=== PATIENT | female | born 1990 ===

== ENCOUNTER 2018-02-16 06:17 | Inpatient (IN) ==
[2018-02-16] MEDS ORDERED: MEPERIDINE 50 MG/1 ML VIAL IV PRN (06:33)
[2018-02-16] MEDS ORDERED: BUTORPHANOL 2 MG/ML VIAL IV PRN (06:33)
[2018-02-16] MEDS ORDERED: ONDANSETRON 4 MG/2 ML VIAL IV PRN (06:33)
[2018-02-16] MEDS ORDERED: OXYTOCIN/LR 20 UNIT/1,000 ML BAG IV SCH (07:00)
[2018-02-16 07:09] LABS: Basophils % 0.1 % (0.0-0.8); Eosinophils # 0.1 10*3/uL (0.0-0.87); Eosinophils % 1.1 % (0.00-10.9); Hematocrit 32.7 VOL% (35.7-47.0); Hemoglobin 11.2 GM/DL (12.0-16.0); Immature Granulocytes % 1.2 %; Immature Granulocytes Absolute 0.11 #; Lymphocytes # 1.8 10*3/uL (1.4-4.0); Lymphocytes % 19.3 % (21.3-54.2); Mean Corpuscular HGB Conc 34.3 GM/DL (32-36); Mean Corpuscular Hemoglobin 28 PG (27-34); Mean Corpuscular Volume 80.9 FL (87-102); Mean Platelet Volume 10.3 FL (9.6-12.0); Monocytes # 0.7 10*3/uL (0.11-0.8); Monocytes % 7.4 % (1.7-12.7); Neutrophils # 6.7 10*3/uL (1.4-7.4); Neutrophils % 70.9 % (38.7-73.9); Platelet Count 273 T/CUMM (130-400); Red Blood Count 4.04 MC/CUMM (3.8-5.5); Red Cell Distribution Width 14.9 % (9.3-17.3); White Blood Count 9.5 T/CUMM (4-12)
[2018-02-16] MEDS: LACTATED RINGERS 1,000 ML IV SCH ×2 (07:16→12:14)
[2018-02-16 07:31] LABS: Alanine Aminotransferase 12 U/L (13-56); Albumin 2.6 G/DL (3.4-5.0); Alkaline Phosphatase 167 U/L (45-117); Aspartate Amino Transferase 9 U/L (0-37); Bilirubin,Total < 0.39 MG/DL (0.2-1.0); Blood Urea Nitrogen 10 MG/DL (7-18); Calcium 8.6 MG/DL (8.5-10.1); Glucose 105 MG/DL (74-106); Osmolality,Calculated 277.4 MOS/KG (273-304); Potassium 3.7 MMOL/L (3.5-5.1); Sodium 140 MMOL/L (136-145); Total Protein 6.8 G/DL (6.4-8.3)
[2018-02-16] MEDS ORDERED: DINOPROSTONE VAG GEL 10 MG SYRINGE VAG ONE ×2 (07:33→15:00)
[2018-02-17] MEDS ORDERED: OXYTOCIN/LR 20 UNIT/1,000 ML BAG IV SCH (02:00)
[2018-02-17] MEDS: LACTATED RINGERS 1,000 ML IV SCH ×2 (02:07→08:44)
[2018-02-17] MEDS ORDERED: FAMOTIDINE 20 MG/2 ML VIAL IV ONE (10:05)
[2018-02-17] MEDS ORDERED: ceFAZolin 2,000 MG in PREMIX 1 EACH IV ONE (10:05)
[2018-02-17] MEDS ORDERED: CITRIC ACID/SODIUM CITRATE 30 ML UDCUP PO ONE (10:05)
[2018-02-17] MEDS ORDERED: OXYTOCIN 10 UNIT/ML VIAL IM ONE (10:08)
[2018-02-17] MEDS ORDERED: OXYTOCIN/LR 30 UNIT/1,000 ML BAG IV ONE (10:08)
[2018-02-17] MEDS ORDERED: BUPIVACAINE SPINAL 0.75% 2 ML AMP SPINAL ONE (10:24)
[2018-02-17] MEDS ORDERED: MORPHINE 10 MG/10 ML VIAL ONE (11:52)
[2018-02-17] MEDS ORDERED: OXYTOCIN/LR 20 UNIT/1,000 ML BAG IV ONE (12:03)
[2018-02-17] MEDS ORDERED: ACETAMINOPHEN 325 MG TABLET PO PRN (12:03)
[2018-02-17] MEDS ORDERED: ONDANSETRON 4 MG/2 ML VIAL IV PRN (12:03)
[2018-02-17] MEDS ORDERED: SIMETHICONE CHEW 80 MG TABLET PO PRN (12:03)
[2018-02-17] MEDS ORDERED: MAGNESIUM HYDROXIDE SUSP 30 ML UDCUP PO PRN (12:03)
[2018-02-17] MEDS ORDERED: RHO(D) IMMUNE GLOBULIN 300 MCG SYRINGE IM ONE (12:03)
[2018-02-17 12:20] LABS: Cord Venous Blood HCO3 21.3 MMOL/L; Cord Venous Blood PCO2 47.6 MMHG; Cord Venous Blood PO2 33.9
[2018-02-17] MEDS ORDERED: LACTATED RINGERS 1,000 ML IV SCH (12:30)
[2018-02-17 13:06] LABS: Apearance,Urine CLEAR (Clear); Bilirubin,Urine Negative (Negative); Blood, Urine Negative (Negative); Glucose,Urine (UA) Negative (Negative); Ketones,Urine 20 mg/dL (Negative); Mucus,Urine Occasional /LPF (Occasional); Nitrite,Urine Negative (Negative); Protein,Urine Negative; Urine Color Yellow (Yellow); Urine Specific Gravity 1.009 (1.001-1.035); Urine Urobilinogen < 2.0 EU/DL (0.2-1.0); WBC,Urine 1 /HPF (0-6)
[2018-02-17] MEDS ORDERED: MEPERIDINE 25 MG/1 ML VIAL IV PRN (15:11)
[2018-02-17] MEDS ORDERED: diphenhydrAMINE 50 MG/1 ML VIAL IV PRN (15:12)
[2018-02-17] MEDS: ceFAZolin 1,000 MG in SYRINGE 1 EACH IV SCH (18:40)
[2018-02-17 21:36] LABS: Basophils % 0.1 % (0.0-0.8); Eosinophils % 0.2 % (0.00-10.9); Hematocrit 28.9 VOL% (35.7-47.0); Hemoglobin 9.3 GM/DL (12.0-16.0); Immature Granulocytes % 0.4 %; Immature Granulocytes Absolute 0.05 #; Lymphocytes # 1.3 10*3/uL (1.4-4.0); Lymphocytes % 10.3 % (21.3-54.2); Mean Corpuscular HGB Conc 32.2 GM/DL (32-36); Mean Corpuscular Hemoglobin 27 PG (27-34); Mean Corpuscular Volume 83.5 FL (87-102); Mean Platelet Volume 9.9 FL (9.6-12.0); Monocytes # 0.9 10*3/uL (0.11-0.8); Monocytes % 7.3 % (1.7-12.7); Neutrophils % 81.7 % (38.7-73.9); Platelet Count 226 T/CUMM (130-400); Red Blood Count 3.46 MC/CUMM (3.8-5.5); Red Cell Distribution Width 15.1 % (9.3-17.3); White Blood Count 12.2 T/CUMM (4-12)
[2018-02-18] MEDS: ceFAZolin 1,000 MG in SYRINGE 1 EACH IV SCH (02:11)
[2018-02-18 08:11] LABS: Basophils % 0.2 % (0.0-0.8); Eosinophils % 0.2 % (0.00-10.9); Hematocrit 27.5 VOL% (35.7-47.0); Hemoglobin 9.4 GM/DL (12.0-16.0); Immature Granulocytes % 1.2 %; Immature Granulocytes Absolute 0.14 #; Lymphocytes # 1.2 10*3/uL (1.4-4.0); Lymphocytes % 10.2 % (21.3-54.2); Mean Corpuscular HGB Conc 34.2 GM/DL (32-36); Mean Corpuscular Hemoglobin 28 PG (27-34); Mean Corpuscular Volume 81.1 FL (87-102); Mean Platelet Volume 10.3 FL (9.6-12.0); Monocytes # 0.7 10*3/uL (0.11-0.8); Monocytes % 6.1 % (1.7-12.7); NRBC # 0.02 10*3/uL; Neutrophils # 9.9 10*3/uL (1.4-7.4); Neutrophils % 82.1 % (38.7-73.9); Platelet Count 248 T/CUMM (130-400); Red Blood Count 3.39 MC/CUMM (3.8-5.5); Red Cell Distribution Width 15.2 % (9.3-17.3)
[2018-02-18] MEDS: MULTIVITAMIN (PRENATAL) TABLET PO SCH (09:59)
[2018-02-18] MEDS: DOCUSATE SODIUM 100 MG CAPSULE PO SCH ×3 (09:59→21:18)
[2018-02-18] MEDS: IBUPROFEN 800 MG TABLET PO PRN ×2 (15:32→23:26)
[2018-02-19 08:29] VITALS: BP 108/56
[2018-02-19] MEDS: MULTIVITAMIN (PRENATAL) TABLET PO SCH (08:40)
[2018-02-19] MEDS: DOCUSATE SODIUM 100 MG CAPSULE PO SCH (08:40)
== END 2018-02-19 10:45 | disposition home or self-care (01) | DRG 766 ==
LOC: N.LDOUT 06:17 → N.LD 06:21 → N.OB 02-17 14:52
PROVIDERS: ADMIT Obstetrics & Gynecology; ATTEND Obstetrics & Gynecology
PROC: LDCSECT (ICD-10-PCS; 2018-02-17 10:00)